=== PATIENT | male | born 1990 | race Asian ===

== ENCOUNTER 2018-11-23 03:37 | Observation (INO) | payer BC ==
[~2018-11-23] VITALS: Ht 165.1 cm; Wt 72.6 kg
[2018-11-23 05:44] LABS: BASOPHILS ABSOLUTE AUTO 0.06 K/mm3 (0.00-0.23); BASOPHILS PERCENT AUTO 0 % (0-2); EOSINOPHILS PERCENT AUTO 0 % (0-6); Hematocrit 47.3 % (37.0-53.0); Hemoglobin 16.5 g/dL (13.5-17.5); IMMATURE GRAN ABSOLUTE AUTO 0.05 K/mm3 (0.00-0.10); IMMATURE GRAN PERCENT AUTO 0 % (0-1); LYMPHOCYTES ABSOLUTE AUTO 1.43 K/mm3 (0.84-5.20); LYMPHOCYTES PERCENT AUTO 10 % (21-46); MONOCYTES ABSOLUTE AUTO 1.13 K/mm3 (0.16-1.47); MONOCYTES PERCENT AUTO 8 % (4-13); Mean Corpuscular HGB 28.8 pg (26.0-34.0); Mean Corpuscular HGB Conc 34.9 g/dL (31.5-36.5); Mean Corpuscular Volume 83 fL (80-100); Mean Platelet Volume 8.6 fL (9.1-12.4); NEUTROPHILS ABSOLUTE AUTO 12.27 K/mm3 (1.96-9.15); NEUTROPHILS PERCENT AUTO 82 % (41-73); Platelet Count 322 K/mm3 (150-400); RDW Standard Deviation 38.7 fL (35.1-46.3); Red Blood Cell Count 5.73 M/mm3 (4.30-5.90); White Blood Cell Count 14.94 K/mm3 (4.00-11.30)
[2018-11-23 06:04] LABS: Alanine Aminotransfer (ALT/SGP 102 U/L (12-78); Albumin, Blood 3.7 g/dL (3.4-5.0); Albumin/Globulin Ratio 0.9 (0.8-1.8); Alk Phos 100 U/L (50-136); Anion Gap 8 mmol/L (6-16); Aspartate Aminotrans (AST/SGOT 51 U/L (12-37); Bilirubin, Total 0.9 mg/dL (0.1-1.0); Blood Urea Nitrogen 10 mg/dL (8-24); Bun/Creatinine Ratio 11.9 (12.0-20.0); CO2, Blood 24 mmol/L (21-32); Calcium, Blood 8.3 mg/dL (8.5-10.1); Chloride, Blood 104 mmol/L (98-108); Creatinine, Blood 0.84 mg/dL (0.60-1.20); Globulin, Blood 4.1 g/dL (2.2-4.0); Glomerular Filtration Rate >60 (60-); Glucose, Blood 113 mg/dL (70-99); Potassium, Blood 3.7 mmol/L (3.5-5.5); Sodium, Blood 136 mmol/L (136-145); Total Protein, Blood 7.8 g/dL (6.4-8.2)
--- NOTE | 2018-11-23 08:32 | NUR ---
History, Chart, Medications and Allergies reviewed before start of procedure. Lungs clear T/O to Auscultation. Pre-Op teaching done. Pt verbalizes understanding.
--- NOTE | 2018-11-23 08:36 | NUR ---
PT TO OR AT APROX 0887
--- NOTE | 2018-11-23 09:19 | NUR ---
11/23/18 0918 Crys Partida 30ML OF .5 MARCAINE USED AT INCISION SITES DURING PROCEDURE.
--- NOTE | 2018-11-23 10:41 | NUR ---
PT RETURNED TO UNIT FROM PACU VIA GURNEY AT APROX 1030. PT REPORTS 0/10 PAIN, STERI STRIPS X'S 3 C/D/I. IVF AND ABX RUNNING PER EMAR. SCD'S IN PLACE. POST-OP VITALS PER PROTOCOL.
--- NOTE | 2018-11-24 05:20 | NUR ---
HAD RECOVERED WELL AFTER SURGERY. HAS URINATED X5, URINE COLOR HAS IMPROVED FROM REECE TO YELLOW. PT HAS REPORTED THAT HE IS PASSING GAS. NO ISSUES AMBULATING. REPORTS GOOD APPETITE. NO C/O PAIN OR N/V. DENIES FURTHER NEEDS, STATES THAT HE IS READY TO GO HOME. SAFETY MEAURES IN PLACE. WILL GIVE HAND OFF TO ONCOMING SHIFT USING SBAR.
[2018-11-24] MEDS ORDERED: AMOX875 PO (12:19)
[2018-11-24] MEDS ORDERED: OXYC1TAB11 PO (12:19)
--- NOTE | 2018-11-24 12:39 | NUR ---
DISCHARGE: DC TO HOME AT THIS TIME WITH SPOUSE. VERBAL UNDERSTANDING OF MEDICAIONS, FOLLOW UP AND INSTRUCTIONS. IVS DC'D WNL. SCRIPTS GIVEN. PT LEFT AMBULATORY TO CAR WITH SPOUSE, BELONGINGS IN HAND.
== END 2018-11-24 12:41 | disposition home or self-care (01) ==
LOC: ER 03:37 → SURS 03:38 → ERHOLD 03:38 → SURS 07:38
PROVIDERS: Emergency Medicine; ADMIT Surgery
PROC: 0DTJ4ZZ Resection of Appendix, Percutaneous Endoscopic Approach (ICD-10-PCS; principal; 2018-11-23 08:30)
DX: K35.33 Acute appendicitis with perforation, localized peritonitis, and gangrene, with abscess (principal)
CPT/HCPCS: 36415; 72193; 80053; 85025; 88304; 96361; 96365; 96366; 96375; 96376; 99285-25; G0378; J0295; J0330; J1100; J1170; J1885; J2250; J2405; J2710; J3010; J7030; J7120; Q9967